=== PATIENT | male | born 1980 | race Caucasian/White ===

== ENCOUNTER 2022-08-31 22:01 | Emergency (ER) | payer OTHER ==
[2022-08-31 22:15] VITALS: BP 128/83; PULSE 103; RESP 20; TEMP 98.3; BMI 27.8
[2022-08-31] MEDS ORDERED: FAMOTIDINE 20 MG TABLET PO ONE (23:15)
[2022-08-31] MEDS ORDERED: MAG HYDROX/AL HYDROX/SIMETH -MYLANTA- ORAL SUSPENSION PO ONE (23:15)
[2022-08-31] MEDS ORDERED: FAMOTIDINE 20 MG TABLET ONE (23:26)
[2022-08-31] MEDS ORDERED: MAG HYDROX/AL HYDROX/SIMETH 30 ML UNIT-DOSE CUP ONE (23:27)
== END 2022-09-01 02:21 | disposition home or self-care (01) ==
LOC: JER 22:01
DX: R10.13 Epigastric pain (principal)
CPT/HCPCS: 76705-TC; 99283-25